=== PATIENT | female | born 1995 | race Caucasian/White ===

== ENCOUNTER 2016-09-13 08:39 | Emergency (ER) | payer OTHER ==
[2016-09-13 08:50] VITALS: BP 105/83; PULSE 122; TEMP 98.8; BMI 19.1
[2016-09-13] MEDS ORDERED: IBUPROFEN 600 MG TABLET (FP) PO ONE ×2 (09:29→09:32)
[2016-09-13] MEDS ORDERED: ALBUTEROL SO4 0.083% IH SOL 2.5 MG/3 ML VIAL.NEB. NEB ONE ×2 (09:29→09:33)
--- NOTE | 2016-09-13 10:02 | PDOC ---
[id number] 4d COLD, PINK EYE Time Seen by Provider: 09/13/16 09:09 History Source: Patient Exam Limitations: No Limitations - History of Present Illness Initial Comments: 09/13/16 13:27 1 yr female no medical history c/o bilateral itchy eyes with discharge, cough and sore throat for 4 days. non toxic, eating and drinking. Severity: reports: mild Possible Cause: Yes: no prior episodes Past History - Past Medical History Allergies/Adverse Reactions: Allergies Allergy/AdvReac Type Severity Reaction Status Date / Time Sulfa (Sulfonamide Allergy Verified 09/13/16 08:50 Antibiotics) Home Medications: Ambulatory Orders Albuterol 0.083% Nebulizer Nisha [Ventolin 0.083% Nebulizer Soln -] 1 neb NEB Q4H #30 vial 09/13/16 Tobramycin 0.3% Ophth Soln [Tobrex Ophthalmic Solution -] 1 drop OU Q4HWA #2 bottle 09/13/16 Other medical history: none - Surgical History Other Surgical History: 09/13/16 13:29 none - Psycho/Social/Smoking Cessation Hx Suicidal Ideation: No Smoking History: Never smoked Information on smoking cessation initiated: No Respiratory Specific PMHX - Complaint Specific PMHX Angina: No Bronchitis: No Pneumonia: No Pulmonary Embolus: No TB (Tuberculosis): No Review of Systems - Review of Systems Able to Perform ROS?: Yes Is the patient limited Setswana proficient: No Constitutional: No: Symptoms Reported HEENTM: Yes: Nose Congestion, Other (eye discharge ) Respiratory: Yes: Cough *Physical Exam - Vital Signs Last Vital Signs Temp Pulse Resp BP Pulse Ox 98.8 F 122 H 18 105/83 99 09/13/16 08:47 09/13/16 08:47 09/13/16 08:47 09/13/16 08:47 09/13/16 08:47 - Physical Exam General Appearance: Yes: Nourished, Appropriately Dressed HEENT: positive: EOMI, CORKY, Normal ENT Inspection, TMs Normal, Pharynx Normal, Rhinorrhea (clear), Other (bilateral conjunctivitis mild with dry crust). negative: Tonsillar Erythema, Nasal Congestion, Orbits, Hearing Decreased, TM Bulging, TM Dull, TM Erythema, Lesions, Martinez, Excessive drooling Neck: positive: Supple. negative: Tender Respiratory/Chest: positive: Lungs Clear, Normal Breath Sounds Cardiovascular: positive: Regular Rhythm, Regular Rate Gastrointestinal/Abdominal: positive: Normal Bowel Sounds, Soft Musculoskeletal: positive: Normal Inspection Extremity: positive: Normal Capillary Refill, Normal Inspection, Normal Range of Motion Integumentary: positive: Normal Color, Dry, Warm Neurologic: positive: Fully Oriented, Alert, Normal Mood/Affect, Normal Response , Motor Strength 01/14 ED Treatment Course - Medications Given in the ED: ED Medications Discontinued Medications Generic Name Dose Route Start Last Admin Trade Name Chaya PRN Reason Stop Dose Admin Albuterol Sulfate 1 amp 09/13/16 09:29 09/13/16 09:41 Ventolin 0.083% Nebulizer Soln - NEB 09/13/16 09:30 1 amp ONCE ONE Administration Ibuprofen 600 mg 09/13/16 09:29 09/13/16 09:41 Motrin - PO 09/13/16 09:30 Not Given ONCE ONE Medical Decision Making - Medical Decision Making 09/13/16 13:31 cc: itchy eyes, pink, conjunctivitis with dc cough and runny nose no fever, non toxic drinking well vital syndrome *DC/Admit/Observation/Transfer Diagnosis at time of Disposition: Conjunctivitis Qualifiers: Conjunctivitis type: acute Acute conjunctivitis type: unspecified Laterality: bilateral Qualified Code(s): H10.33 - Unspecified acute conjunctivitis, bilateral - Discharge Dispostion Disposition: HOME Condition at time of disposition: Good - Prescriptions Prescriptions: Tobramycin 0.3% Ophth Soln [Tobrex Ophthalmic Solution -] 1 drop OU Q4HWA #2 bottle Albuterol 0.083% Nebulizer Nisha [Ventolin 0.083% Nebulizer Soln -] 1 neb NEB Q4H #30 vial - Referrals Referrals: Hannah Koehler MD [Primary Care Provider] - - Patient Instructions Additional Instructions: drink pleanty of fluids to stay hydrated increase Vitamin C and Zinc to boost immune system over the counter Brandy C or EmergencyC take ibuprofen (advil, motrin) 600-800mg every 6hrs for fever or pain tea with honey and lemon follow with your doctor if any worsening symptoms use the eye drops as directed - Post Discharge Activity Work/School Note: Back to Work
== END 2016-09-13 10:05 | disposition home or self-care (01) ==
LOC: JERFT 08:39
PROC: 3E0F7GC Introduction of Other Therapeutic Substance into Respiratory Tract, Via Natural or Artificial Opening (ICD-10-PCS; principal; 2016-09-13)
DX: H10.33 Unspecified acute conjunctivitis, bilateral (principal); J06.9 Acute upper respiratory infection, unspecified; B97.89 Other viral agents as the cause of diseases classified elsewhere
CPT/HCPCS: 99281-25

== ENCOUNTER 2017-04-24 19:08 | Emergency (ER) | payer OTHER ==
[2017-04-24 19:26] VITALS: BMI 19.1
--- NOTE | 2017-04-24 19:50 | PDOC ---
History of Present Illness - General History Source: Patient Exam Limitations: No Limitations - History of Present Illness Initial Comments: CHIEF COMPLAINT: 21 y/o afebrile female with PMH anxiety c/o worsening abdominal pain over the past 1 year. HISTORY OF PRESENT ILLNESS: The patient states for about 1 year she's had upper abdominal pain that always occurs after she eats and is getting worse. She has discussed the issue with her PCP who started her on Pantoprazole twice a day, which she started 1 month ago. She states it doesn't seem to be helping and her pain is actually getting worse. She describes the pain as burning and a "knot". She states the pain is the worst after she drink alcohol or eats greasy foods. She states today the pain became unbearable after eating plain pasta. The patient denies f/c, n/v/d, CP, SOB, back pain, hematuria, dysuria. She was just given a referral to a GI specialist, Dr. Fleming, by her PCP on Tuesday but has not set up an appointment yet. PCP is Dr. Anderson. Vital signs on arrival are within normal limits. REVIEW OF SYSTEMS: GENERAL/CONSTITUTIONAL: No fever/chills. No weakness. No weight change. HEAD, EYES, EARS, NOSE AND THROAT: No change in vision. No ear pain or discharge. No sore throat. CARDIOVASCULAR: No chest pain or shortness of breath. RESPIRATORY: No cough, wheezing, or hemoptysis. GASTROINTESTINAL: +upper abdominal pain. No nausea, vomiting, diarrhea, constipation. GENITOURINARY: No dysuria, frequency, or change in urination. MUSCULOSKELETAL: No joint or muscle swelling or pain. No neck or back pain. SKIN: No rash or easy bruising. NEUROLOGIC: No headache, vertigo, loss of consciousness, or loss of sensation. PHYSICAL EXAM: GENERAL: The patient is awake, alert, and fully oriented, in no acute distress. She is uncomfortable but non toxic appearing. HEAD: Normal with no signs of trauma. ENT: Pupils equal, round and reactive to light, extraocular movements intact, sclera anicteric, conjunctiva clear. Neck supple. LUNGS: Clear to auscultation bilaterally. Normal excursion. No respiratory distress or use of accessory muscles. CV: RRR, S1/S2, no MRG. Cap refill < 2 sec. ABDOMEN: Soft, non-distended, TTP of epigastric region with positive Torrez's sign. No rebound, guarding or rigidity. EXTREMITIES: Normal range of motion, no edema. NEUROLOGICAL: Normal speech, normal gait. CN II-XII grossly intact. PSYCH: Normal mood, normal affect. SKIN: Warm, dry, normal turgor, no rashes or lesions noted. <Cassandra Wilson - Last Filed: 04/24/17 22:10> <Linda Lovelace - Last Filed: 04/25/17 05:26> - General Chief Complaint: Pain Stated Complaint: ABD PAIN Time Seen by Provider: 04/24/17 19:35 Past History - Past Medical History Other medical history: Pt denies - Psycho/Social/Smoking Cessation Hx Suicidal Ideation: No Smoking History: Never smoked Information on smoking cessation initiated: No Hx Alcohol Use: No Drug/Substance Use Hx: No Substance Use Type: None <Cassandra Wilson - Last Filed: 04/24/17 22:10> <Linda Lovelace - Last Filed: 04/25/17 05:26> - Past Medical History Allergies/Adverse Reactions: Allergies Allergy/AdvReac Type Severity Reaction Status Date / Time Sulfa (Sulfonamide Allergy Verified 04/24/17 19:23 Antibiotics) Home Medications: Ambulatory Orders Pantoprazole Sodium [Protonix -] 20 mg PO BID 04/24/17 Sucralfate [Carafate -] 1 gm PO QID #56 tablet 04/24/17 Venlafaxine HCl ER [Effexor Xr -] 37.5 mg PO BID 04/24/17 *Physical Exam - Vital Signs Last Vital Signs Temp Pulse Resp BP Pulse Ox 98.1 F 92 H 20 114/70 99 04/24/17 19:24 04/24/17 19:24 04/24/17 19:24 04/24/17 19:24 04/24/17 19:24 <Cassandra Wilson - Last Filed: 04/24/17 22:10> - Vital Signs Last Vital Signs Temp Pulse Resp BP Pulse Ox 98.6 F 68 18 112/64 98 04/24/17 22:31 04/24/17 22:31 04/24/17 22:31 04/24/17 22:31 04/24/17 22:31 <Linda Lovelace - Last Filed: 04/25/17 05:26> ED Treatment Course - LABORATORY CBC & Chemistry Diagram: 04/24/17 20:28 04/24/17 20:28 <LissaladariusCassandra cadena - Last Filed: 04/24/17 22:10> - LABORATORY CBC & Chemistry Diagram: 04/24/17 20:28 04/24/17 20:28 - ADDITIONAL ORDERS Additional order review: Laboratory Results 04/24/17 04/24/17 20:28 20:28 Sodium 140 Potassium 4.1 Chloride 106 Carbon Dioxide 26 Anion Gap 8 BUN 8 Creatinine 0.6 Creat Clearance w eGFR > 60 Random Glucose 98 Calcium 9.4 Total Bilirubin 0.7 AST 12 L ALT 16 Alkaline Phosphatase 42 L Total Protein 7.9 Albumin 4.2 Lipase 192 Urine Color Lt. yellow Urine Appearance Clear Urine pH 8.0 Ur Specific [place] 1.015 Urine Protein Negative Urine Glucose (UA) Negative Urine Ketones Negative Urine Blood Trace-inta Urine Nitrite Negative Urine Bilirubin Negative Urine Urobilinogen 0.2 Ur Leukocyte Esterase Negative Urine HCG, Qual Negative 04/24/17 20:28 RBC 4.10 MCV 93.5 MCHC 34.1 RDW 12.3 MPV 8.8 Neutrophils % 62.5 Lymphocytes % 24.9 Monocytes % 11.4 H Eosinophils % 0.5 Basophils % 0.7 - Medications Given in the ED: ED Medications Discontinued Medications Generic Name Dose Route Start Last Admin Trade Name Herbieq PRN Reason Stop Dose Admin Famotidine/Sodium Chloride 50 mls @ 100 mls/hr 04/24/17 20:07 04/24/17 20:33 Pepcid 20 Mg Premixed Ivpb - IVPB 04/24/17 20:36 100 mls/hr ONCE ONE Administration Sucralfate 1 gm 04/24/17 20:08 04/24/17 20:33 Carafate - PO 04/24/17 20:09 1 gm ONCE ONE Administration <Linda Lovelace - Last Filed: 04/25/17 05:26> Medical Decision Making - Medical Decision Making A/P: 21 y/o afebrile female with worsening epigastric pain with positive torrez 's sign who has been on a PPI twice a day for 1 month without relief. Plan is as follows: 1. Labs 2. hcg 3. IV pepcid 4. PO carafate 5. Gallbladder ultrasound Labs unremarkable. hcg negative Gallbladder ultrasound IMPRESSION: Liver normal. Callbladder normal. No gallstones, wall thickening or pericholecystic fluid. Common bile duct normal, 3mm. Right kidney normal. Aorta normal caliber. IVC patent. the patient states she feels much better after medications. Gave her all of her results and she appears disappointed. Informed her the next step would be to f/u with the GI doctor her PCP referred her to for possible endoscopy if symptoms continue. Instructed her to take over the counter zantac daily and will call out rx for carafate. Pt instructed to return to the ER with any worsening or concerning symptoms. The patient verbalizes understanding of all instructions, has no further questions and is awaiting discharge. <Cassandra Wilson - Last Filed: 04/24/17 22:10> *DC/Admit/Observation/Transfer <Cassandra Wilson - Last Filed: 04/24/17 22:10> - Attestations Physician Attestion: I reviewed the case with the mid-level practitioner and agree with the mid- level practitioner's assessment, diagnosis and disposition. <Linda Lovelace - Last Filed: 04/25/17 05:26> Diagnosis at time of Disposition: Epigastric abdominal pain - Discharge Dispostion Disposition: HOME Condition at time of disposition: Improved - Prescriptions Prescriptions: Sucralfate [Carafate -] 1 gm PO QID #56 tablet - Referrals Referrals: Caridad Anderson MD [Primary Care Provider] - Josh Fleming MD [Non Staff, Medical] - Call tomorrow (Call tomorrow to schedule follow up appointment) - Patient Instructions Printed Discharge Instructions: DI for Epigastric Pain Additional Instructions: Discharge Instructions: -Continue taking your medications as prescribed -A prescription has been sent to your pharmacy; please take as prescribed -You can add over the counter zantac twice a day as well to help relieve your symptoms -Call Dr. Fleming tomorrow to schedule a follow up appointment -Return to the ER with any worsening or concerning symptoms. - Post Discharge Activity Work/School Note: Back to Work
[2017-04-24] MEDS ORDERED: FAMOTIDINE 20 MG/50 ML IVPB 50 ML IVPB ONE ×2 (20:07→20:16)
[2017-04-24] MEDS ORDERED: SUCRALFATE 1 GM TABLET (FP) PO ONE (20:08)
[2017-04-24] MEDS ORDERED: SUCRALFATE 1 GM TABLET (FP) ONE (20:15)
[2017-04-24 20:35] LABS: BASOPHIL 0.7 % (0-2.0); EOSINOPHIL 0.5 % (0-4.5); MCH 31.9 pg (25.7-33.7); MCHC 34.1 g/dl (32.0-36.0); MEAN CELL VOLUME 93.5 fl (80-96); MEAN PLT VOLUME 8.8 fl (7.5-11.1); NEUTROPHILS 62.5 % (42.8-82.8); PLATELET COUNT 210 K/MM3 (134-434); RDW 12.3 % (11.6-15.6); URINE APPEARANCE CLEAR; URINE BILIRUBIN NEGATIVE (NEGATIVE); URINE BLOOD TRACE-INTA (NEGATIVE); URINE COLOR LT. YELLOW; URINE GLUCOSE (UA) NEGATIVE (NEGATIVE); URINE KETONE NEGATIVE (NEGATIVE); URINE LEUK ESTERASE NEGATIVE (NEGATIVE); URINE NITRITE NEGATIVE (NEGATIVE); URINE PROTEIN NEGATIVE (NEGATIVE); URINE UROBILINOGEN 0.2 mg/dL (0.2-1.0); WHITE BLOOD COUNT 5.5 K/mm3 (4.0-10.0)
[2017-04-24 20:56] LABS: ALBUMIN 4.2 g/dl (3.4-5.0); ALK PHOS 42 U/L (45-117); ANION GAP 8 (8-16); BILIRUBIN,TOTAL 0.7 mg/dL (0.2-1.0); CALCIUM 9.4 mg/dL (8.5-10.1); CO2 26 mmol/L (21-32); CREATININE 0.6 mg/dL (0.55-1.02); GLUCOSE,RANDOM 98 mg/dL (74-106); SGOT/AST 12 U/L (15-37); SGPT/ALT 16 U/L (12-78); TOT PROT 7.9 g/dl (6.4-8.2)
[2017-04-24 22:32] VITALS: BP 112/64; PULSE 68; TEMP 98.6
== END 2017-04-24 22:32 | disposition home or self-care (01) ==
LOC: JER 19:08
PROC: 3E033GC Introduction of Other Therapeutic Substance into Peripheral Vein, Percutaneous Approach (ICD-10-PCS; principal; 2017-04-24)
DX: R10.13 Epigastric pain (principal)
CPT/HCPCS: 36415; 76705-TC; 80053; 81003; 83690; 84703; 85025; 99283-25

== ENCOUNTER 2017-10-22 19:26 | Emergency (ER) | payer OTHER ==
[2017-10-22 19:34] VITALS: BP 105/65; PULSE 70; TEMP 97.5; BMI 19.1
--- NOTE | 2017-10-22 19:42 | PDOC ---
History of Present Illness - General History Source: Patient Exam Limitations: No Limitations - History of Present Illness Initial Comments: 10/22/17 20:28 The patient is a 22 year old female, with a significant past medical history of gastritis, who presents to the emergency department with, two hours of epigastric and left upper quadrant pain. The patient describes her epigastric pain as an intermittent numbness and tingling, rating as a 6/10. She reports her symptoms began after eating a sandwich. Secondary to her symptoms, she reports nausea without emesis. She reports similar symptoms in April when she was diagnosed with gastritis. Her last menses was a week ago. She denies recent fevers, chills, headache or dizziness. She denies recent vomit , diarrhea or constipation. She denies recent dysuria, frequency, urgency or hematuria. She denies recent chest pain or shortness of breath. Allergies: Sulfa antibiotics Past surgical history: None reported. Social history: Nonsmoker. Denies EtOH use and recreational drug use. Primary Care Physician: Dr. Caridad Anderson <Jayne Castro - Last Filed: 10/22/17 21:02> <Barbie Boudreaux - Last Filed: 10/23/17 02:02> - General Chief Complaint: Pain Stated Complaint: ABDOMINAL PAIN Time Seen by Provider: 10/22/17 19:42 Past History <Jayne Castro - Last Filed: 10/22/17 21:02> - Past Medical History COPD: No Other medical history: Pt denies - Suicide/Smoking/Psychosocial Hx Smoking History: Never smoked Have you smoked in the past 12 months: No Information on smoking cessation initiated: No Hx Alcohol Use: No Drug/Substance Use Hx: No Substance Use Type: None <Barbie Boudreaux - Last Filed: 10/23/17 02:02> - Past Medical History Allergies/Adverse Reactions: Allergies Allergy/AdvReac Type Severity Reaction Status Date / Time Sulfa (Sulfonamide Allergy Verified 10/22/17 19:31 Antibiotics) Home Medications: Ambulatory Orders Pantoprazole Sodium [Protonix -] 20 mg PO BID 04/24/17 Sucralfate [Carafate -] 1 gm PO QID #56 tablet 04/24/17 Venlafaxine HCl ER [Effexor Xr -] 37.5 mg PO BID 04/24/17 Review of Systems - Review of Systems Able to Perform ROS?: Yes Comments:: 10/22/17 20:28 GENERAL/CONSTITUTIONAL: No fever or chills. No weakness. HEAD, EYES, EARS, NOSE AND THROAT: No change in vision. No ear pain or discharge. No sore throat. CARDIOVASCULAR: No chest pain or shortness of breath. RESPIRATORY: No cough, wheezing, or hemoptysis. GASTROINTESTINAL: +Epigastric pain. +Left upper quadrant pain. +Nausea. No vomiting, diarrhea or constipation. GENITOURINARY: No dysuria, frequency, or change in urination. MUSCULOSKELETAL: No joint or muscle swelling or pain. No neck or back pain. SKIN: No rash NEUROLOGIC: No headache, vertigo, loss of consciousness, or change in strength/ sensation. ENDOCRINE: No increased thirst. No abnormal weight change. HEMATOLOGIC/LYMPHATIC: No anemia, easy bleeding, or history of blood clots. ALLERGIC/IMMUNOLOGIC: No hives or skin allergy. All Other Systems: Reviewed and Negative <Jayne Castro - Last Filed: 10/22/17 21:02> *Physical Exam - Vital Signs Last Vital Signs Temp Pulse Resp BP Pulse Ox 97.5 F L 70 18 105/65 98 10/22/17 19:32 10/22/17 19:32 10/22/17 19:32 10/22/17 19:32 10/22/17 19:32 - Physical Exam Comments: 10/22/17 21:02 GENERAL: Awake, alert, and fully oriented, in no acute distress HEAD: No signs of trauma EYES: PERRLA, EOMI, sclera anicteric, conjunctiva clear ENT: Auricles normal inspection, hearing grossly normal, nares patent, oropharynx clear without exudates. Moist mucosa NECK: Normal ROM, supple, no lymphadenopathy, JVD, or masses LUNGS: Breath sounds equal, clear to auscultation bilaterally. No wheezes, and no crackles HEART: Regular rate and rhythm, normal S1 and S2, no murmurs, rubs or gallops ABDOMEN: +Mild epigastric tenderness. +Mild left upper quadrant tenderness. Soft , normoactive bowel sounds. No guarding, no rebound. No masses EXTREMITIES: Normal range of motion, no edema. No clubbing or cyanosis. No cords, erythema, or tenderness NEUROLOGICAL: Cranial nerves II through XII grossly intact. Normal speech, normal gait SKIN: Warm, Dry, normal turgor, no rashes or lesions noted. <Jayne Castro - Last Filed: 10/22/17 21:02> - Vital Signs Last Vital Signs Temp Pulse Resp BP Pulse Ox 97.5 F L 70 18 105/65 98 10/22/17 19:32 10/22/17 19:32 10/22/17 19:32 10/22/17 19:32 10/22/17 19:32 <Barbie Boudreaux - Last Filed: 10/23/17 02:02> ED Treatment Course - LABORATORY CBC & Chemistry Diagram: 10/22/17 20:30 10/22/17 20:30 - Medications Given in the ED: ED Medications Discontinued Medications Generic Name Dose Route Start Last Admin Trade Name Freq PRN Reason Stop Dose Admin Al Hydroxide/Mg Hydroxide 30 ml 10/22/17 20:00 10/22/17 20:20 Mylanta Oral Suspension - PO 10/22/17 20:01 30 ml ONCE ONE Administration Ondansetron HCl 4 mg 10/22/17 20:00 10/22/17 20:20 Zofran - PO 10/22/17 20:01 4 mg ONCE ONE Administration <Jayne Castro - Last Filed: 10/22/17 21:02> - LABORATORY CBC & Chemistry Diagram: 10/22/17 20:30 10/22/17 20:30 <Barbie Boudreaux - Last Filed: 10/23/17 02:02> Medical Decision Making - Medical Decision Making 10/23/17 02:01 Pt comes with epiagstric pain that has been on and off for 2 years; she was here recently for the same and labs were normal. SHe was diagnosed with gastritis and given H2 blockers. Pt had labs today; exam and labs are normal. Pt has minimal epig pain. SHe is afebrile she is not a smoker or a drinker. SHe was advised to eat regular meals and follow with a GI specialist for an EGD. <Barbie Boudreaux - Last Filed: 10/23/17 02:02> *DC/Admit/Observation/Transfer - Attestations Scribe Attestion: 10/22/17 20:29 Documentation prepared by Jayne Castro, acting as medical investigator for Barbie Boudreaux MD. <Jayne Castro - Last Filed: 10/22/17 21:02> - Discharge Dispostion Admit: No <Barbie Boudreaux - Last Filed: 10/23/17 02:02> Diagnosis at time of Disposition: Gastritis and duodenitis - Discharge Dispostion Disposition: HOME Condition at time of disposition: Stable - Referrals Referrals: Caridad Anderson MD [Primary Care Provider] - Melvin Justice MD [Staff Physician] - - Patient Instructions Printed Discharge Instructions: DI for Gastritis - Post Discharge Activity
[2017-10-22] MEDS ORDERED: ONDANSETRON 4 MG TABLET PO ONE (20:00)
[2017-10-22] MEDS ORDERED: MAG HYDROX/AL HYDROX/SIMETH 30 ML UNIT-DOSE CUP PO ONE (20:00)
[2017-10-22] MEDS ORDERED: MAG HYDROX/AL HYDROX/SIMETH 30 ML UNIT-DOSE CUP ONE (20:15)
[2017-10-22] MEDS ORDERED: ONDANSETRON *ODT* 4 MG TABLET ONE (20:15)
[2017-10-22 20:37] LABS: BASO % 0.8 % (0-2.0); EOS % 4.8 % (0-4.5); HEMATOCRIT 34.3 % (32.4-45.2); HEMOGLOBIN 11.6 GM/dL (10.7-15.3); LYMPH % 29.9 % (8-40); MCH 31.4 pg (25.7-33.7); MEAN CELL VOLUME 92.3 fl (80-96); MEAN PLT VOLUME 8.9 fl (7.5-11.1); MONO % 13.4 % (3.8-10.2); NEUT % 51.1 % (42.8-82.8); PLATELET COUNT 200 K/MM3 (134-434); RBC 3.72 M/mm3 (3.60-5.2)
[2017-10-22 21:04] LABS: ANION GAP 6 (8-16); BLOOD UREA NITROGEN 13 mg/dL (7-18); CALCIUM 8.4 mg/dL (8.5-10.1); CHLORIDE 107 mmol/L (98-107); CO2 24 mmol/L (21-32); CREATININE 0.6 mg/dL (0.55-1.02); GLUCOSE,RANDOM 103 mg/dL (74-106); POTASSIUM 3.8 mmol/L (3.5-5.1); SGOT/AST 13 U/L (15-37); SGPT/ALT 20 U/L (12-78); SODIUM 137 mmol/L (136-145)
[2017-10-22 21:05] LABS: ALK PHOS 40 U/L (45-117); BILIRUBIN,TOTAL 0.6 mg/dL (0.2-1.0)
== END 2017-10-22 21:38 | disposition home or self-care (01) ==
LOC: JER 19:26
DX: K29.60 Other gastritis without bleeding (principal); K29.80 Duodenitis without bleeding
CPT/HCPCS: 36415; 80053; 84703; 85025; 99282-25